=== PATIENT | male | born 2000 | race Hispanic/Latino ===

== ENCOUNTER 2024-08-23 11:05 | Emergency (ER) | payer OTHER, BC ==
[~2024-08-23] VITALS: Ht 167.6 cm; Wt 90.7 kg
[2024-08-23 11:10] VITALS: BP_DIAS 69; TEMP 99
--- NOTE | 2024-08-23 11:20 | ERN ---
General Chief Complaint: Ankle Problem Stated Complaint: ANKLE INJURY Time Seen by MD: 11:07 Source: patient History of Present Illness Initial Comments Patient is a 24-year-old male coming in to be evaluated for right ankle pain. 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 He states his ankle hurts more when he ambulates in his unable to bear weight on ankle. Allergies: Coded Allergies: Penicillins (Unverified Allergy, Unknown, 08/23/24) Home Meds Active Scripts Naproxen (Naproxen) 500 Mg Tablet, 1 TAB PO BID for pain for 7 Days, #14 TAB 0 Refills Prov:BRIANA ACUNA MD 08/23/24 Past Medical History Past Medical History: No Pertinent History Past Surgical History: Other Surgical History Other: ear tubes ROS Dictation CONSTITUTIONAL: No chills, no fever, no weakness, no diaphoresis, no malaise. HEAD/FACE: No signs of trauma. EENT: No eye pain, no blurred vision, no tearing, no double vision, no ear pain, no ear discharge, no nose pain, no nasal congestion, no throat pain, no throat swelling, no mouth pain. RESPIRATORY: No cough, no orthopnea, no SOB, no stridor, no wheezing. CARDIOVASCULAR: No chest pain, no edema, no palpitations, no syncope. GASTROINTESTINAL/ABDOMINAL: No abdominal pain, no constipation, no diarrhea, no nausea, no vomiting. GENITOURINARY: No abnormal discharge, no dysuria, no frequent urination, no hematuria. No complaints of pain in the genitals. MUSCULOSKELETAL: No back pain, no gout, joint pain, joint swelling, no muscle pain, no muscle stiffness, no neck pain. INTEGUMENTARY: No change in color, no change in hair/nails, no dryness, no lesion, no lumps, no rash. NEUROLOGICAL/PSYCH: No anxiety, not depressed, no emotional problem, no headache, no numbness, no pre-existing deficit, no history of seizures, no tremors, no weakness. HEMATOLOGIC/LYMPHATIC: Not anemic, no history of blood clots, no apparent bleeding, no bruising, glands not swollen. All Systems Negative, Except as Noted. Physical Exam Physical Exam Dictation VITAL SIGNS: Reviewed. GENERAL APPEARANCE: Alert, oriented x3, no acute distress, obese. HEAD AND FACE: Non-traumatic. EYES: PERRL, pink conjunctivas, eyelid no trauma, anterior chamber clear. EARS: Pinnas intact and no signs of trauma or erythema. Ear canals clear and no discharge. TMs no erythema. NOSE: No discharge, no bleeding. OROPHARYNX: Mouth normal, teeth no caries, tongue pink. Pharynx clear, no erythema. Tonsils no exudates, no abscesses noted. Mucous membrane moist. NECK: Supple, non-tender, no thyromegaly, no masses, no JVD, no bruits. BREAST: Deferred. CHEST: No tenderness, no crepitus, no paradoxical movement, no retractions. LUNGS: Clear, well-ventilated, symmetric, no rales, no wheezing, no rhonchi, no stridor, good breath sounds bilaterally. HEART: Regular rate, regular rhythm, no murmur, no gallops. VASCULAR: No peripheral edema. ABDOMEN: Soft, positive bowel sounds, nondistended, no guarding, nontender, no rebound, no masses no hepatomegaly, no splenomegaly, no Friedman's sign, no hernias. RECTAL: Deferred. GENITAL: Deferred. NEUROLOGICAL: Normal speech, gross motor function intact, gross sensory function intact. MUSCULOSKELETAL: Neck nontender, full range of motion, back nontender, full range of motion. EXTREMITIES: Nontender, full range of motion. Right ankle tenderness on palpation, lateral malleolar swelling SKIN: Color pink, dry, no turgor, no rash, no lacerations, no abrasions, no contusions. LYMPHATICS: Deferred. Results Laboratory and Microbiology Labs Reviewed?: Yes EKG/XRAY/US/CT/MRI X-RAY Comment Right ankle x-ray-NAD MDM MDM: Differential diagnosis: Ankle sprain, ankle fracture Rationale: Tests considered and ordered secondary to shared decision making include: Previous outside records reviewed: Old ER visits. Risk of complication and/or morbidity or mortality of patient management: None Medications-Per medication reconciliation Patient is a 74-year-old male coming in to be evaluated after he twisted his ankle coming down the ladder. Physical exam there is swelling on the lateral malleolus x-ray did not disclose findings. Patient will be discharged in stable condition with a diagnosis of ankle sprain gel splint will be provided. I did a dvised him appropriate follow up with PCP in 1-2 days as well as repeat x-ray of the pain persists after seven days. ED Course Orders Procedure Category Date Status Time Ankle Comp 3vws Rt RAD 08/23/24 Taken 11:09 Ketorolac PHA 08/23/24 Complete Tromethamine 30mg/Ml 11:30 Ankle Stirrup Splint [email or web address] 08/23/24 In Process 11:43 Current Medications Medications (Trade) Dose Ordered Sig/Yenny Route PRN Reason Start Time Stop Time Status Last Admin Dose Admin Ketorolac Tromethamine (toRADol) 30 mg ONCE ONCE IM 08/23/24 11:30 08/23/24 11:31 DC 08/23/24 11:55 Vital Signs Date Time Temp Pulse Resp B/P (MAP) Pulse Ox O2 Delivery O2 Flow Rate FiO2 08/23/24 11:10 99.0 75 18 119/69 98 Room Air* 0 21 08/23/24 11:07 99.0 75 18 119/69 98 Room Air 0 DX & DISP Disposition: Discharge Departure Impression: Primary Impression: Ankle sprain Condition: Stable Scripts Naproxen (Naproxen) 500 Mg Tablet 1 TAB PO BID for pain for 7 Days, #14 TAB 0 Refills Prov: BRIANA ACUNA MD 08/23/24 Additional Instructions: FOLLOW-UP WITH PRIMARY CARE PROVIDER IN 1 TO 2 DAYS. TAKE MEDICATIONS DIRECTED HERE IN THE EMERGENCY ROOM. OKAY TO CONTINUE HOME MEDICATIONS UNLESS OTHERWISE DISCUSSED DURING YOUR VISIT IN THE EMERGENCY ROOM TODAY. RETURN TO YOUR NEAREST EMERGENCY ROOM IF SYMPTOMS WORSEN OR IF THERE IS NO IMPROVEMENT. CALL 911 IF YOU NEED IMMEDIATE ASSISTANCE. TAKE TYLENOL [id number] NEEDED AND IF NO CONTRAINDICATIONS ARE PRESENT. INCREASE ORAL HYDRATION. A WOUND CULTURE OR URINE CULTURE WAS ORDERED HERE IN THE EMERGENCY ROOM DEPARTMENT PLEASE FOLLOW-UP WITH PRIMARY CARE PROVIDER AND ADVISE THEM TO GET REPORTS FROM OUR FACILITY. IF YOU HAD ANY ADRIANO WRAP/SPLINTS THAT WERE APPLIED HERE, PLEASE DO NOT REMOVE THEM UNTIL YOU SEE YOUR PRIMARY CARE OR SPECIALTY. Referrals: Referrals: HORTENCIA RANDLE MD (PCP) Time of Disposition: 11:42 BRIANA ACUNA MD Aug 23, 2024 11:20
[2024-08-23] MEDS ORDERED: NAPR-1194 PO (11:43)
[2024-08-23] MEDS: ketOROlac 30MG VIAL (30MG/ML) IM ONE (11:55)
[2024-08-23 11:58] VITALS: BP_SYST 67; PULSE 65; RESP 17; O2SAT 98
--- NOTE | 2024-08-23 12:12 | HMCIMG ---
ANKLE COMP 3VWS RT HISTORY: Status post fall COMPARISON: None TECHNIQUE: 3 images of the right ankle were obtained. FINDINGS: There is no acute displaced fracture or dislocation. There is soft tissue swelling. Mild degenerative changes are seen. IMPRESSION: 1. Findings as described above.
== END 2024-08-23 13:13 | disposition home or self-care (01) ==
LOC: EDH 11:05
DX: S93.401A Sprain of unspecified ligament of right ankle, initial encounter (principal); Z88.0 Allergy status to penicillin; X50.1XXA Overexertion from prolonged static or awkward postures, initial encounter; Y93.39 Activity, other involving climbing, rappelling and jumping off; Y92.89 Other specified places as the place of occurrence of the external cause; Y99.8 Other external cause status
CPT/HCPCS: 99284; 29515; 73610; 96372; J1885